=== PATIENT | female | born 1965 | race Caucasian/White ===

== ENCOUNTER 2016-11-20 12:34 | Emergency (ER) | payer BC | END 2016-11-20 14:53 | disposition home or self-care (01) | LOC: D.ER 12:34 | DX: G43.909 Migraine, unspecified, not intractable, without status migrainosus (principal); E86.0 Dehydration; R11.10 Vomiting, unspecified ==

== ENCOUNTER 2017-06-30 12:41 | Emergency (ER) | payer BC | END 2017-06-30 15:50 | disposition home or self-care (01) | LOC: D.ER 12:41 | DX: R51 Headache (principal) ==

== ENCOUNTER → 2017-11-19 20:33 | Outpatient (CLI) | payer BC | END | disposition home or self-care (01) | LOC: D.MAMMO 09:30 | DX: Z12.31 Encounter for screening mammogram for malignant neoplasm of breast (principal) ==

== ENCOUNTER 2020-09-25 09:30 | Outpatient (CLI) | payer BC | END 2020-09-25 10:00 | disposition home or self-care (01) | LOC: D.MAMMO 09:30 | PROVIDERS: ATTEND Family Medicine | DX: Z12.31 Encounter for screening mammogram for malignant neoplasm of breast (principal) ==